=== PATIENT | male | born 1955 | race Caucasian/White ===

== ENCOUNTER 2019-12-25 06:58 | Day surgery (SDC) | payer MEDICARE, OTHER ==
[2019-12-25] MEDS ORDERED: Sodium Chloride 0.9% 10 ML Syringe FLUSH PRN (08:00)
[2019-12-25] MEDS ORDERED: Lactated Ringers 1,000 ML IV SCH (08:00)
[2019-12-25] MEDS ORDERED: Propofol 200 MG/20 ML SDV ONE (08:03)
[2019-12-25] MEDS ORDERED: fentaNYL 100 MCG/2 ML SDV ONE (08:03)
--- NOTE | 2019-12-25 14:57 | OR ---
PRE-OPERATIVE DIAGNOSIS: Colon cancer screening with questionable history of previous tiny polyp. Last colonoscopy was about 10 years ago per patient report. There is no family history of colon cancer or colon polyps. POST-OPERATIVE DIAGNOSES: 1. 2 cm and 8 mm polyps/masses to the distal ileum. The larger one was friable and abnormal in appearance. These were both within about 10 cm at the ileocecal valve. Cold biopsy x3 bites taken. I did not feel comfortable removing these given the thin-walled distal ileum at least here in [place]. I would recommend he follow up with Gastroenterology pending the path report. They may be able to be removed endoscopically in [place]. 2. 5 mm colon polyp at 40 cm, removed with hot snare. 3. Mild left-sided diverticulosis. 4. Mild hemorrhoids. PROCEDURE: Colonoscopy with polypectomy x1 using hot snare and cold biopsy x1 site (distal ileum polyp/mass). SURGEON: Dalton Parrish M.D. ANESTHESIA: Monitored anesthesia care. BOWEL PREP: Good. DESCRIPTION OF PROCEDURE: Clayton is a 64-year-old male who was brought to the endoscopy suite after discussing risks and benefits of the procedure. Informed consent was obtained for conscious sedation and colonoscopy with or without biopsy and/or polypectomy. We also discussed possibility of missed lesions. Pre-procedure exam was unremarkable. IV, oxygen, and monitors were placed. The patient was placed in the left lateral decubitus position. Sedation was administered and a digital rectal exam was performed and unremarkable. Colonoscope was passed into the rectum and slowly advanced all the way to the cecum. Cecum was viewed and photographed. Ileocecal valve was intubated and distal ileum did reveal 2 separate polyps with the larger one being about 2 cm and masslike and friable. Cold biopsy x3 bites taken of this one. There was also a separate 8 mm polyp nearby. Given the higher risk of rupture and/or bleeding, I would defer the treatment on these to Gastroenterology in [place]. We will see what path report shows first. The colonoscope was slowly withdrawn and the mucosa was closed observed in a direct circumferential manner. The ascending colon was unremarkable. The transverse colon was unremarkable. The descending colon revealed 5 mm polyp at 40 cm removed with hot snare. Descending and sigmoid colon also revealed some mild diverticulosis. Retroflexion was performed. Rectal mucosa revealed mild hemorrhoids, not acutely inflamed. Scope was removed. The patient tolerated the procedure well. The patient was monitored until that baseline status. Discharge instructions were reviewed and the patient was discharged in good condition. COMPLICATIONS: None. TOTAL TIME: 22 minutes. ESTIMATED BLOOD LOSS: About 1 mL. RECOMMENDATIONS/FOLLOW-UP: We will await results of the path report to determine ideal followup interval. I am suspecting the patient will need to see Gastroenterology to follow up on the distal ileum polyp/mass. I would like to kindly thank Dr. Chavez Wood for this referral. DMB: 12/25/2019 11:00:40 MODL: 12/25/2019 12:14:56 /[id number]
== END 2019-12-25 11:42 | disposition home or self-care (01) ==
LOC: VM.SDS 06:58
PROVIDERS: ATTEND Family Medicine
DX: Z12.11 Encounter for screening for malignant neoplasm of colon (principal); D12.4 Benign neoplasm of descending colon; K57.30 Diverticulosis of large intestine without perforation or abscess without bleeding; K64.9 Unspecified hemorrhoids; K52.9 Noninfective gastroenteritis and colitis, unspecified; R73.9 Hyperglycemia, unspecified; E66.09 Other obesity due to excess calories; M25.50 Pain in unspecified joint; E78.5 Hyperlipidemia, unspecified; G62.9 Polyneuropathy, unspecified; G47.33 Obstructive sleep apnea (adult) (pediatric); R03.0 Elevated blood-pressure reading, without diagnosis of hypertension; R97.20 Elevated prostate specific antigen [PSA]; I10 Essential (primary) hypertension; Z68.37 Body mass index [BMI] 37.0-37.9, adult; Z01.812 Encounter for preprocedural laboratory examination; Z20.828 Contact with and (suspected) exposure to other viral communicable diseases; Z98.890 Other specified postprocedural states; Z79.899 Other long term (current) drug therapy
CPT/HCPCS: 00811; 88305; J2704; J3010; J7120; U0002